=== PATIENT | male | born 1985 | race Caucasian/White ===

== ENCOUNTER 2020-09-21 00:30 | Emergency (ER) | payer SELFPAY ==
[~2020-09-21] VITALS: Ht 175.3 cm; Wt 59.1 kg
[2020-09-21 00:32] VITALS: BP 129/84
[2020-09-21] MEDS ORDERED: ONDANSETRON PF 4 MG/2 ML VIAL. IVP ONE (01:15)
[2020-09-21] MEDS ORDERED: IV NORMAL SALINE 1000ML BAG 1,000 ML IV ONE (01:15)
== END 2020-09-21 01:30 | disposition left against medical advice (07) ==
LOC: ER 00:30
DX: F41.9 Anxiety disorder, unspecified (principal); F32.9 Major depressive disorder, single episode, unspecified; Z53.21 Procedure and treatment not carried out due to patient leaving prior to being seen by health care provider
CPT/HCPCS: 99283